=== PATIENT | female | born 1975 | race Caucasian/White ===

== ENCOUNTER 2019-03-11 07:33 | Day surgery (SDC) | payer BC, OTHER ==
[2019-03-11] MEDS ORDERED: CEFAZOLIN 1 GM INJ (10:00)
[2019-03-11] MEDS ORDERED: ALBUTEROL 0.083% (NEB) 2.5 MG/3 ML AMP HHN ×2 (10:30)
[2019-03-11] MEDS ORDERED: LABETALOL HCL 20MG INJ IV ×2 (10:30)
[2019-03-11] MEDS ORDERED: FENTAnyl 50 MCG/ML VIAL IV ×5 (10:30)
[2019-03-11] MEDS ORDERED: ONDANSETRON 4 MG INJ IV ×2 (10:30)
[2019-03-11] MEDS ORDERED: OXYCODONE/ACETAMINOPHEN (5/325) TAB PO ×4 (10:30)
[2019-03-11] MEDS ORDERED: EPHEDrine 25 MG/5 ML SYG IV ×2 (10:30)
[2019-03-11] MEDS ORDERED: HYDROmorphONE 1 MG/5 ML IV SYRINGE IV ×4 (10:30)
[2019-03-11] MEDS ORDERED: MEPERIDINE 25 MG INJ IV ×2 (10:30)
[2019-03-11] MEDS ORDERED: DIPHENHYDRAMINE 50 MG INJ IV ×2 (10:30)
[2019-03-11] MEDS ORDERED: KETOROLAC 30 MG INJ IV ×2 (10:30)
[2019-03-11] MEDS ORDERED: hydrALAzine 20 MG INJ IV ×2 (10:30)
[2019-03-11] MEDS: POLYMYXIN/BACITRACIN 1L IRRIG IRR (11:07)
[2019-03-11] MEDS: HYDROmorphONE 1 MG/5 ML IV SYRINGE IV ×3 (11:52→12:07)
[2019-03-11] MEDS: HYDROCODONE/APAP (5/325) TAB PO (12:03)
[2019-03-11] MEDS: FENTAnyl 50 MCG/ML VIAL IV (12:28)
== END 2019-03-11 13:48 | disposition home or self-care (01) ==
LOC: SDS 07:33
DX: K43.6 Other and unspecified ventral hernia with obstruction, without gangrene (principal); I10 Essential (primary) hypertension; J45.909 Unspecified asthma, uncomplicated; E78.5 Hyperlipidemia, unspecified
CPT/HCPCS: 49653